=== PATIENT | male | born 1995 | race Caucasian/White ===

== ENCOUNTER 2020-09-27 16:41 | Emergency (ER) | payer OTHER ==
[~2020-09-27] VITALS: Ht 177.8 cm; Wt 88.6 kg
[2020-09-27 17:26] VITALS: BP 154/71
--- NOTE | 2020-09-27 18:15 | RAD ---
EXAM: 3 views right hand DATE: 09/27/2020 5:44 PM INDICATION: Reason: injury pain / Spl. Instructions: / History: COMPARISON: No Prior FINDINGS/ IMPRESSION: No evidence of acute fracture or dislocation. Joint spaces are preserved without significant degenera tive/proliferative change. IMPRESSION: No evidence of acute fracture or dislocation. Electronically signed by: Wu Lam MD (09/27/2020 6:12 PM) PERI
--- NOTE | 2020-09-27 20:12 | PHYS DOC ---
Past Medical History Past Medical History: No Pertinent History Past Surgical History: No Surgical History Smoking Status: Never Smoker Alcohol Use: None General Adult EDM: Chief Complaint: HAND PROBLEM HPI: HPI: Patient is a 25 year old male who presents to the ED today with a laceration on the right index finger knuckle. 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 He is right-handed. Review of Systems: Review of Systems: Constitutional: Denies fever or chills. [] Musculoskeletal: Denies back pain or joint pain. [] Integument: Reports right index finger laceration Neurologic: Denies headache, focal weakness or sensory changes. [] Psychiatric: Denies depression or anxiety. [] Heart Score: C/O Chest Pain: N/A Risk Factors: Risk Factors: DM, Current or recent (<one month) smoker, HTN, HLP, family history of CAD, obesity. Risk Scores: Score 0 - 3: 2.5% MACE over next 6 weeks - Discharge Home Score 4 - 6: 20.3% MACE over next 6 weeks - Admit for Clinical Observation Score 7 - 10: 72.7% MACE over next 6 weeks - Early Invasive Strategies Allergies: Allergies: Allergies Coded Allergies Type Severity Reaction Last Updated Verified No Known Drug Allergies 09/27/20 No Physical Exam: PE: Constitutional: Well developed, well nourished, no acute distress, non-toxic appearance. [] Skin: Right index finger knuckle with a superficial laceration approximately 2 cm long, there is no obvious tendon involvement. Patient able to flex and extend the finger with no difficulties. Adequate radial sensation to the right index finger. +2 right radial pulse. Cap refill less than 2 seconds to right index finger. Back: No tenderness, no CVA tenderness. [] Extremities: No tenderness, no cyanosis, no clubbing, ROM intact, no edema. [] Neurologic: Alert and oriented X 3, normal motor function, normal sensory function, no focal deficits noted. [] Psychologic: Affect normal, judgement normal, mood normal. [] Current Patient Data: Vital Signs: Vital Signs Date Time Temp Pulse Resp B/P (MAP) Pulse Ox O2 Delivery O2 Flow Rate FiO2 09/27/20 17:26 98.1 55 16 154/71 (98) 97 Room Air 98.1 EKG: EKG: [] Radiology/Procedures: Radiology/Procedures: []PROCEDURE: HAND RIGHT 3V EXAM: 3 views right hand DATE: 09/27/2020 5:44 PM INDICATION: Reason: injury pain / Spl. Instructions: / History: COMPARISON: No Prior FINDINGS/ IMPRESSION: No evidence of acute fracture or dislocation. Joint spaces are preserved without significant degenerative/proliferative change. IMPRESSION: No evidence of acute fracture or dislocation. Electronically signed by: Wu Lam MD (09/27/2020 6:12 PM) [facility] DICTATED and SIGNED BY: WU LAM MD DATE: 09/27/20 [id number] 0 Course & Med Decision Making: Course & Med Decision Making Pertinent Labs and Imaging studies reviewed. (See chart for details) This is a 25-year-old male patient presenting to the ED today with right index finger laceration, laceration is superficial that was closed by me with Dermabond. Tetanus is up-to-date. Right hand x-rays are negative. Discharge to home. Follow-up with PCP as needed Donya Disclaimer: Donya Disclaimer: This electronic medical record was generated, in whole or in part, using a voice recognition dictation system. Departure Departure Impression: Primary Impression: Finger laceration Qualified Codes: S61.210A - Laceration without foreign body of right index f alberto without damage to nail, initial encounter Disposition: 01 DC HOME SELF CARE/HOMELESS Condition: STABLE Referrals: NO PCP (PCP) Follow-up with your doctor as needed Patient Instructions: Fingertip Laceration Additional Instructions: You have a laceration to the right index finger knuckle that was closed with Dermabond. You can shower. Avoid moving the finger too much because laceration can open up. Apply Neosporin to the area for 7 days. Monitor the area for signs of infection including but not limited to increased redness, warmth, yellow drainage from the area and return to the ED for MIKE Barrera APRN Sep 27, 2020 20:12
== END 2020-09-27 20:16 | disposition home or self-care (01) ==
LOC: ER 16:41
DX: S61.210A Laceration without foreign body of right index finger without damage to nail, initial encounter (principal); W29.0XXA Contact with powered kitchen appliance, initial encounter; Y93.89 Activity, other specified; Y92.69 Other specified industrial and construction area as the place of occurrence of the external cause; Y99.0 Civilian activity done for income or pay
CPT/HCPCS: 12001; 73130; 99283